=== PATIENT | male | born 1985 | race Caucasian/White ===

== ENCOUNTER 2019-05-05 13:35 | Inpatient (IN) | payer OTHER ==
[2019-05-05 17:25] VITALS: BMI 38.5
--- NOTE | 2019-05-05 18:56 | HP ---
COWS - Scale Resting Pulse: 1= [place] 81-100 Sweatin= Chills/Flushing Restless Observation: 1= Difficult to Sit Still Pupil Size: 1= Pupils >than Normal Bone or Joint Aches: 1= Mild Discomfort Runny Nose/ Eye Tearin= Nasal Congestion GI Upset > 30mins: 1= Stomach Cramp Tremor Observation: 1= Tremor [place], Not Seen Yawning Observation: 1= 1-2x During Session Anxiety or Irritability: 1=Feels Anxious/Irritable Goose Flesh Skin: 3=Piloerection COWS Score: 13 CIWA Score Nausea/Vomitin-Mild Nausea/No Vomiting Muscle Tremors: 3 Anxiety: 2 Agitation: 2 Paroxysmal Sweats: 2 Orientation: 0-Oriented Tacttile Disturbances: 0-None Auditory Disturbances: 0-None Visual Disturbances: 0-None Headache: 2-Mild CIWA-Ar Total Score: 12 - Admission Criteria OASAS Guidelines: Admission for Medically Managed Detox: Requires at least one of the followin. CIWA greater than 12 2. Seizures within the past 24 hours 3. Delirium tremens within the past 24 hours 4. Hallucinations within the past 24 hours 5. Acute intervention needed for co occurring medical disorder 6. Acute intervention needed for co occurring psychiatric disorder 7. Severe withdrawal that cannot be handled at a lower level of care (continued vomiting, continued diarrhea, abnormal vital signs) requiring intravenous medication and/or fluids 8. Patient presents the following: CIWA greater than 12 Admission Criteria Met: Admission criteria met Admission ROS [facility] Chief Complaint: alcohol and heroin detox Allergies/Adverse Reactions: Allergies Allergy/AdvReac Type Severity Reaction Status Date / Time hydromorphone [From Dilaudid] Allergy Mild Swelling Verified 05/05/19 17:17 History of Present Illness: 33 yo with long h/o opioid use and alcohol use. Has been to multiple detox and rehab. Has been in a methadone program- left in 07/2018, ago b/c he did not want to be tied down. Pt states he has been using heroin since then- sniffs. 20 bags/day. No h/o OD. Has narcan kit at home alcohol- 6-12 25 oz beer at night-drinks to forget the pain. Ni h/o seizures/DT' s DUR- no controlled substances DELVIN-0.0 - Ebola screening Have you traveled outside of the country in the last 21 days: No Have you had contact with anyone from an Ebola affected area: No Do you have a fever: No - Review of Systems Constitutional: No Symptoms Reported EENT: reports: No Symptoms Reported Respiratory: reports: No Symptoms reported Cardiac: reports: No Symptoms Reported GI: reports: No Symptoms Reported : reports: No Symptoms Reported Musculoskeletal: reports: Other (tingling and numbness of L leg) Integumentary: reports: Change in Color (L leg swelling and red), Other Neuro: reports: No Symptoms reported Endocrine: reports: No Symptoms Reported Hematology: reports: No Symptoms Reported Psychiatric: reports: No Sypmtoms Reported Other Systems: Reviewed and Negative Patient History - Patient Medical History Hx Genitourinary Disorders: No (s/p gastric bypass ) Hx Depression: Yes Other Medical History: anxiety, L leg chronically red- - Patient Surgical History Other Surgical History: s/p gastric bypass - Smoking Cessation Smoking history: Current every day smoker Have you smoked in the past 12 months: Yes Aproximately how many cigarettes per day: 20 Initiated information on smoking cessation: Yes 'Breaking Loose' booklet given: 05/05/19 - Substances abused Heroin Substance route: Inhalation Frequency: Daily Amount used: 20 bags Age of first use: 24 Date of last use: 05/05/19 Alcohol Substance route: Oral Frequency: Daily Amount used: (6) 25 oz can beer Age of first use: 17 Date of last use: 05/05/19 Family Disease History - Family Disease History Family Disease History: [place]: Father (liver and kidney failure, DM), Other: Father , Mother (gall bladder) Admission Physical Exam S - Vital Signs Vital Signs: Vital Signs - 24 hr 05/05/19 17:18 Temperature 99.3 F Pulse Rate 90 Respiratory 18 Rate Blood Pressure 125/76 - Physical General Appearance: Yes: Within Normal Limits, Other HEENTM: Yes: Within Normal Limits, Tm's normal Respiratory: Yes: Within Normal Limits, Chest Non-Tender Neck: Yes: Within Normal Limits Cardiology: Yes: Within Normal Limits, Regular Rhythm, Regular Rate Abdominal: Yes: Within Normal Limits, Normal Bowel Sounds Genitourinary: Yes: Within Normal Limits Back: Yes: Within Normal Limits Musculoskeletal: Yes: Within Normal Limits Extremities: Yes: Other (chronic swelling of Left leg- no tenderness and warmth) Neurological: Yes: Within Normal Limits, reading assistant II-XII NML intact, Fully Oriented Integumentary: Yes: Within Normal Limits, Normal Color Lymphatic: Yes: Within Normal Limits - Diagnostic (1) Alcohol use disorder Current Visit: Yes Status: Acute (2) Opioid use disorder Current Visit: Yes Status: Acute (3) H/O bariatric surgery Current Visit: Yes Status: Acute Breathalyzer - Breathalyzer Breathalyzer: 0 Urine Drug Screen - Test Device Lot number: [id number] Expiration date: 02/17/21 - Control Is test valid?: Yes - Results Drug screen NEGATIVE: No Urine drug screen results: FEN-Fentanyl, MOP-Opiates, OXY-Oxycodone, MTD- Methadone Inpatient Rehab Admission - Rehab Decision to Admit Inpatient rehab admission?: No
[2019-05-05] MEDS ORDERED: BISMUTH SUBSALICYLATE 524 MG/30 ML UD PO PRN (19:21)
[2019-05-05] MEDS ORDERED: ONDANSETRON *ODT* 4 MG TABLET SL PRN (19:21)
[2019-05-05] MEDS ORDERED: MAGNESIUM CITRATE 300 ML BOTTLE PO PRN (19:21)
[2019-05-05] MEDS ORDERED: IBUPROFEN 400 MG TABLET (FP) PO PRN (19:21)
[2019-05-05] MEDS ORDERED: MAGNESIUM HYDROX 2400MG/30ML ORAL SUSPENSION 30 ML CUP PO PRN (19:21)
[2019-05-05] MEDS ORDERED: MAG HYDROX/AL HYDROX/SIMETH 30 ML UNIT-DOSE CUP PO PRN (19:21)
[2019-05-05] MEDS ORDERED: ACETAMINOPHEN 325 MG TABLET (FP) PO PRN ×2 (19:21)
[2019-05-05] MEDS ORDERED: MENTHOL/PHENOL 1 EACH UD MM PRN (19:21)
[2019-05-05] MEDS ORDERED: METHADONE HCL 10 MG TABLET (FOR DETOX USE ONLY) PO ONE (19:26)
[2019-05-05] MEDS ORDERED: NALOXONE HCL 0.4 MG/ML VIAL IM PRN (19:26)
[2019-05-05] MEDS ORDERED: chlordiazePOXIDE HCL 25 MG CAPSULE PO PRN (19:26)
[2019-05-05] MEDS: THIAMINE HCL 100 MG TABLET (FP) PO SCH (22:30)
[2019-05-05] MEDS: chlordiazePOXIDE HCL 25 MG CAPSULE PO SCH (22:30)
[2019-05-05] MEDS: MELATONIN 5 MG TABLETS PO PRN (22:31)
[2019-05-06] MEDS: chlordiazePOXIDE HCL 25 MG CAPSULE PO SCH ×4 (06:00→22:03)
[2019-05-06] MEDS ORDERED: METHADONE HCL 5 MG TABLET (FOR DETOX USE ONLY) ONE (08:45)
[2019-05-06] MEDS ORDERED: METHADONE HCL 10 MG TABLET (FOR DETOX USE ONLY) ONE (08:46)
[2019-05-06 09:40] LABS: HEMOGLOBIN 10.9 GM/dL (11.7-16.9); MCH 25.2 pg (25.7-33.7); MEAN CELL VOLUME 78.6 fl (80-96); MEAN PLT VOLUME 8.6 fl (7.5-11.1); PLATELET COUNT 195 K/MM3 (134-434); RBC 4.32 M/mm3 (4.00-5.60); RDW 17.5 % (11.9-15.9)
[2019-05-06] MEDS ORDERED: METHADONE (DETOX) 20 MG, METHADONE (DETOX) 5 MG PO ONE (10:00)
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
[2019-05-06] MEDS: NICOTINE 21 MG/24 HOURS TOPICAL PATCH TD SCH (10:10)
[2019-05-06] MEDS: PRENATAL VITAMINS W/ FOLIC ACID TABLET (FP) PO SCH (10:10)
[2019-05-06 10:27] LABS: ALBUMIN 2.9 g/dl (3.4-5.0); BILIRUBIN,TOTAL 0.8 mg/dL (0.2-1); CREATININE 0.8 mg/dL (0.55-1.3); POTASSIUM 3.9 mmol/L (3.5-5.1); TOT PROT 6.2 g/dl (6.4-8.2)
[2019-05-06] MEDS: METHOCARBAMOL 500 MG TABLET PO PRN ×2 (15:16→22:05)
--- NOTE | 2019-05-06 15:18 | PN ---
[facility] CIWA - CIWA Score Nausea/Vomitin-No Nausea/No Vomiting Muscle Tremors: 3 Anxiety: 3 Agitation: 3 Paroxysmal Sweats: 3 Orientation: 0-Oriented Tacttile Disturbances: 0-None Auditory Disturbances: 0-None Visual Disturbances: 0-None Headache: 0-None Present CIWA-Ar Total Score: 12 BHS COWS - Scale Resting Pulse: 0= [place] 80 or Below Sweatin=Flushed/Facial Moisture Restless Observation: 1= Difficult to Sit Still Pupil Size: 0= Normal to Room Light Bone or Joint Aches: 2= Severe Diffuse Aches Runny Nose/ Eye Tearin= Runny Nose/Eyes GI Upset > 30mins: 0= None Tremor Observation of Outstretched Hands: 1= Tremor [place], Not Seen Yawning Observation: 1= 1-2x During Session Anxiety or Irritability: 2=Irritable/Anxious Goose Flesh Skin: 0=Smooth Skin COWS Score: 11 S Progress Note (SOAP) Subjective: chills sweats hot flashes interrupted sleep muscle achy muscle cramping Objective: 05/06/19 15:17 Vital Signs Temperature 98.4 F 05/06/19 14:09 Pulse Rate 69 05/06/19 14:09 Respiratory Rate 18 05/06/19 14:09 Blood Pressure 125/69 05/06/19 14:09 O2 Sat by Pulse Oximetry (%) Laboratory Tests 05/06/19 05/06/19 05/06/19 07:27 07:27 07:27 WBC 6.0 RBC 4.32 Hgb 10.9 L Hct 34.0 L MCV 78.6 L MCH 25.2 L MCHC 32.0 RDW 17.5 H Plt Count 195 MPV 8.6 Sodium 139 Potassium 3.9 Chloride 107 Carbon Dioxide 27 Anion Gap 6 L BUN 5.0 L Creatinine 0.8 Est GFR (CKD-EPI)AfAm 136.99 Est GFR (CKD-EPI)NonAf 118.20 Random Glucose 83 Calcium 8.0 L Total Bilirubin 0.8 AST 22 ALT 27 Alkaline Phosphatase 90 Total Protein 6.2 L Albumin 2.9 L RPR Titer Nonreactive HIV 1&2 Antibody Screen HIV P24 Antigen 05/06/19 07:27 WBC RBC Hgb Hct MCV MCH MCHC RDW Plt Count MPV Sodium Potassium Chloride Carbon Dioxide Anion Gap BUN Creatinine Est GFR (CKD-EPI)AfAm Est GFR (CKD-EPI)NonAf Random Glucose Calcium Total Bilirubin AST ALT Alkaline Phosphatase Total Protein Albumin RPR Titer HIV 1&2 Antibody Screen Negative HIV P24 Antigen Negative labs noted aaox3 ambulating no acute distress Assessment: 05/06/19 15:17 withdrawal sx Plan: continue detox increase fluids roboxine prn motrin 800mg prn
[2019-05-06] MEDS: THIAMINE HCL 100 MG TABLET (FP) PO SCH (22:03)
[2019-05-06] MEDS: IBUPROFEN 400 MG TABLET (FP) PO PRN (22:05)
[2019-05-06] MEDS: MELATONIN 5 MG TABLETS PO PRN (22:08)
[2019-05-07] MEDS: hydrOXYzine HCL 25 MG TABLET (FP) PO PRN (01:52)
[2019-05-07] MEDS: IBUPROFEN 400 MG TABLET (FP) PO PRN ×3 (04:20→17:46)
[2019-05-07] MEDS: METHOCARBAMOL 500 MG TABLET PO PRN (04:21)
[2019-05-07] MEDS: chlordiazePOXIDE HCL 25 MG CAPSULE PO SCH ×4 (06:43→22:30)
--- NOTE | 2019-05-07 09:51 | PN ---
[facility] CIWA - CIWA Score Nausea/Vomitin-No Nausea/No Vomiting Muscle Tremors: 3 Anxiety: 2 Agitation: 3 Paroxysmal Sweats: 2 Orientation: 0-Oriented Tacttile Disturbances: 0-None Auditory Disturbances: 0-None Visual Disturbances: 0-None Headache: 0-None Present CIWA-Ar Total Score: 10 S COWS - Scale Resting Pulse: 0= [place] 80 or Below Sweatin= Chills/Flushing Restless Observation: 1= Difficult to Sit Still Pupil Size: 0= Normal to Room Light Bone or Joint Aches: 1= Mild Discomfort Runny Nose/ Eye Tearin= Nasal Congestion GI Upset > 30mins: 0= None Tremor Observation of Outstretched Hands: 1= Tremor [place], Not Seen Yawning Observation: 1= 1-2x During Session Anxiety or Irritability: 2=Irritable/Anxious Goose Flesh Skin: 0=Smooth Skin COWS Score: 8 BHS Progress Note (SOAP) Subjective: agitation restless insomnia interrupted sleep sweats Objective: 05/07/19 09:50 Vital Signs Temperature 97.5 F L 05/07/19 09:43 Pulse Rate 75 05/07/19 09:43 Respiratory Rate 18 05/07/19 09:43 Blood Pressure 116/68 05/07/19 09:43 O2 Sat by Pulse Oximetry (%) Laboratory Tests 05/06/19 05/06/19 05/06/19 07:27 07:27 07:27 WBC 6.0 RBC 4.32 Hgb 10.9 L Hct 34.0 L MCV 78.6 L MCH 25.2 L MCHC 32.0 RDW 17.5 H Plt Count 195 MPV 8.6 Sodium 139 Potassium 3.9 Chloride 107 Carbon Dioxide 27 Anion Gap 6 L BUN 5.0 L Creatinine 0.8 Est GFR (CKD-EPI)AfAm 136.99 Est GFR (CKD-EPI)NonAf 118.20 Random Glucose 83 Calcium 8.0 L Total Bilirubin 0.8 AST 22 ALT 27 Alkaline Phosphatase 90 Total Protein 6.2 L Albumin 2.9 L RPR Titer Nonreactive HIV 1&2 Antibody Screen HIV P24 Antigen 05/06/19 07:27 WBC RBC Hgb Hct MCV MCH MCHC RDW Plt Count MPV Sodium Potassium Chloride Carbon Dioxide Anion Gap BUN Creatinine Est GFR (CKD-EPI)AfAm Est GFR (CKD-EPI)NonAf Random Glucose Calcium Total Bilirubin AST ALT Alkaline Phosphatase Total Protein Albumin RPR Titer HIV 1&2 Antibody Screen Negative HIV P24 Antigen Negative aaox3 ambulating no acute distress Assessment: 05/07/19 09:50 withdrawal sx Plan: continue detox increase fluids psych ordered
[2019-05-07] MEDS ORDERED: METHADONE HCL 10 MG TABLET (FOR DETOX USE ONLY) PO ONE (10:00)
[2019-05-07] MEDS: CYCLOBENZAPRINE HCL 10 MG TABLET (FP) PO PRN ×2 (10:46→19:14)
[2019-05-07] MEDS: PRENATAL VITAMINS W/ FOLIC ACID TABLET (FP) PO SCH (10:46)
[2019-05-07] MEDS: NICOTINE 21 MG/24 HOURS TOPICAL PATCH TD SCH (10:46)
[2019-05-07] MEDS: cloNIDine HCL 0.1 MG TABLET PO PRN ×2 (12:27→17:47)
[2019-05-07] MEDS: THIAMINE HCL 100 MG TABLET (FP) PO SCH (22:30)
[2019-05-08] MEDS ORDERED: chlordiazePOXIDE HCL 10 MG CAPSULE PO PRN
[2019-05-08] MEDS: IBUPROFEN 400 MG TABLET (FP) PO PRN ×3 (01:30→19:50)
[2019-05-08] MEDS: hydrOXYzine HCL 25 MG TABLET (FP) PO PRN (02:53)
[2019-05-08] MEDS: chlordiazePOXIDE HCL 10 MG CAPSULE PO SCH ×4 (05:11→22:07)
[2019-05-08] MEDS: CYCLOBENZAPRINE HCL 10 MG TABLET (FP) PO PRN ×3 (05:11→22:07)
[2019-05-08] MEDS ORDERED: METHADONE HCL 10 MG TABLET (FOR DETOX USE ONLY) ONE (09:33)
[2019-05-08] MEDS ORDERED: METHADONE HCL 5 MG TABLET (FOR DETOX USE ONLY) ONE (09:33)
[2019-05-08] MEDS ORDERED: METHADONE (DETOX) 10 MG, METHADONE (DETOX) 5 MG PO ONE (10:00)
--- NOTE | 2019-05-08 10:08 | PN ---
S CIWA - CIWA Score Nausea/Vomitin-Mild Nausea/No Vomiting Muscle Tremors: 2 Anxiety: 2 Agitation: 1-Slight > Activity Paroxysmal Sweats: 3 Orientation: 0-Oriented Tacttile Disturbances: 0-None Auditory Disturbances: 0-None Visual Disturbances: 0-None Headache: 0-None Present CIWA-Ar Total Score: 9 BHS COWS - Scale Resting Pulse: 0= [place] 80 or Below Sweatin=Flushed/Facial Moisture Restless Observation: 1= Difficult to Sit Still Pupil Size: 1= Pupils >than Normal Bone or Joint Aches: 1= Mild Discomfort Runny Nose/ Eye Tearin= Nasal Congestion GI Upset > 30mins: 1= Stomach Cramp Tremor Observation of Outstretched Hands: 0= None Yawning Observation: 0= None Anxiety or Irritability: 1=Feels Anxious/Irritable Goose Flesh Skin: 0=Smooth Skin COWS Score: 8 S Progress Note (SOAP) Subjective: interrupted sleep, sweats, shakes, diarrhea Objective: 05/08/19 10:05 Vital Signs Temperature 98.9 F 05/08/19 09:17 Pulse Rate 70 05/08/19 09:17 Respiratory Rate 16 05/08/19 09:17 Blood Pressure 141/65 05/08/19 09:17 O2 Sat by Pulse Oximetry (%) Laboratory Tests 05/06/19 05/06/19 05/06/19 07:27 07:27 07:27 WBC 6.0 RBC 4.32 Hgb 10.9 L Hct 34.0 L MCV 78.6 L MCH 25.2 L MCHC 32.0 RDW 17.5 H Plt Count 195 MPV 8.6 Sodium 139 Potassium 3.9 Chloride 107 Carbon Dioxide 27 Anion Gap 6 L BUN 5.0 L Creatinine 0.8 Est GFR (CKD-EPI)AfAm 136.99 Est GFR (CKD-EPI)NonAf 118.20 Random Glucose 83 Calcium 8.0 L Total Bilirubin 0.8 AST 22 ALT 27 Alkaline Phosphatase 90 Total Protein 6.2 L Albumin 2.9 L RPR Titer Nonreactive HIV 1&2 Antibody Screen HIV P24 Antigen TB (QFT) Incubation TB Test (QFT) Nil TB Test (QFT) Mitogen TB Test (QFT) Antigen TB Test (QFT) TB Positive Criteria 05/06/19 05/06/19 07:27 07:27 WBC RBC Hgb Hct MCV MCH MCHC RDW Plt Count MPV Sodium Potassium Chloride Carbon Dioxide Anion Gap BUN Creatinine Est GFR (CKD-EPI)AfAm Est GFR (CKD-EPI)NonAf Random Glucose Calcium Total Bilirubin AST ALT Alkaline Phosphatase Total Protein Albumin RPR Titer HIV 1&2 Antibody Screen Negative HIV P24 Antigen Negative TB (QFT) Incubation TB Test (QFT) Nil 0.03 TB Test (QFT) Mitogen 9.03 TB Test (QFT) Antigen 0.02 TB Test (QFT) Negative TB Positive Criteria obese male pt aox3 in nad ambulating , Assessment: 05/08/19 10:06 withdrawal sx's obesity anemia Plan: cont. detox increase fluids f/up with PMD -anemia benadryl hs 50mg imodium
[2019-05-08] MEDS: PRENATAL VITAMINS W/ FOLIC ACID TABLET (FP) PO SCH (10:47)
[2019-05-08] MEDS: NICOTINE 21 MG/24 HOURS TOPICAL PATCH TD SCH (10:47)
[2019-05-08] MEDS ORDERED: diphenhydrAMINE HCL 25 MG CAPSULE (FP) PO ONE (21:18)
[2019-05-08] MEDS: diphenhydrAMINE HCL 50 MG CAPSULE PO SCH (22:07)
[2019-05-08] MEDS: THIAMINE HCL 100 MG TABLET (FP) PO SCH (22:07)
[2019-05-09] MEDS: IBUPROFEN 400 MG TABLET (FP) PO PRN ×2 (02:43→22:58)
[2019-05-09] MEDS: hydrOXYzine HCL 25 MG TABLET (FP) PO PRN ×2 (02:43→14:56)
[2019-05-09] MEDS: chlordiazePOXIDE HCL 10 MG CAPSULE PO SCH ×2 (05:36→18:18)
[2019-05-09] MEDS: CYCLOBENZAPRINE HCL 10 MG TABLET (FP) PO PRN ×3 (05:36→22:58)
[2019-05-09] MEDS ORDERED: METHADONE HCL 10 MG TABLET (FOR DETOX USE ONLY) PO ONE (10:00)
[2019-05-09] MEDS: PRENATAL VITAMINS W/ FOLIC ACID TABLET (FP) PO SCH (10:07)
[2019-05-09] MEDS: NICOTINE 21 MG/24 HOURS TOPICAL PATCH TD SCH (10:08)
--- NOTE | 2019-05-09 11:30 | PN ---
[facility] CIWA - CIWA Score Nausea/Vomitin-No Nausea/No Vomiting Muscle Tremors: None Anxiety: 2 Agitation: 0-Normal Activity Paroxysmal Sweats: 3 Orientation: 0-Oriented Tacttile Disturbances: 0-None Auditory Disturbances: 0-None Visual Disturbances: 0-None Headache: 2-Mild CIWA-Ar Total Score: 7 S COWS - Scale Resting Pulse: 0= [place] 80 or Below Sweatin= Beads of Sweat on Face Restless Observation: 1= Difficult to Sit Still Pupil Size: 0= Normal to Room Light Bone or Joint Aches: 0= None Runny Nose/ Eye Tearin= None GI Upset > 30mins: 0= None Tremor Observation of Outstretched Hands: 0= None Yawning Observation: 1= 1-2x During Session Anxiety or Irritability: 2=Irritable/Anxious Goose Flesh Skin: 0=Smooth Skin COWS Score: 7 [facility] Progress Note (SOAP) Subjective: c/o sweats and anxiety. Objective: 05/09/19 11:30 Vital Signs 05/09/19 05/09/19 08:14 09:40 Temperature 97.7 F 98.1 F Pulse Rate 67 76 Respiratory 18 16 Rate Blood Pressure 122/60 141/92 Assessment: 05/09/19 11:30 AOX3, in no acute distress. Full ROM, ambulating in the unit. withdrawal symptoms. Plan: continue detox.
[2019-05-09] MEDS ORDERED: diphenhydrAMINE HCL 25 MG CAPSULE (FP) PO ONE (20:56)
[2019-05-09] MEDS: THIAMINE HCL 100 MG TABLET (FP) PO SCH (22:58)
[2019-05-09] MEDS: diphenhydrAMINE HCL 50 MG CAPSULE PO SCH (22:59)
[2019-05-10] MEDS: hydrOXYzine HCL 25 MG TABLET (FP) PO PRN (01:26)
[2019-05-10] MEDS ORDERED: chlordiazePOXIDE HCL 10 MG CAPSULE PO ONE (05:00)
[2019-05-10] MEDS ORDERED: METHADONE HCL 5 MG TABLET (FOR DETOX USE ONLY) PO ONE (06:00)
[2019-05-10] MEDS: IBUPROFEN 400 MG TABLET (FP) PO PRN (06:25)
[2019-05-10] MEDS: CYCLOBENZAPRINE HCL 10 MG TABLET (FP) PO PRN (06:26)
[2019-05-10 09:36] VITALS: BP 134/81; PULSE 72; TEMP 98.6
[2019-05-10] MEDS: NICOTINE 21 MG/24 HOURS TOPICAL PATCH TD SCH (10:28)
[2019-05-10] MEDS: PRENATAL VITAMINS W/ FOLIC ACID TABLET (FP) PO SCH (10:28)
--- NOTE | 2019-05-10 13:19 | DS ---
[facility] Detox Discharge Summary Admission Date: 05/05/19 Discharge Date: 05/10/19 - History Present History: Alcohol Dependence, Opioid Dependence - Physical Exam Results Vital Signs: Vital Signs Temperature 98.6 F 05/10/19 09:35 Pulse Rate 72 05/10/19 09:35 Respiratory Rate 20 05/10/19 09:35 Blood Pressure 134/81 05/10/19 09:35 O2 Sat by Pulse Oximetry (%) Pertinent Admission Physical Exam Findings: Laboratory Tests 05/06/19 05/06/19 05/06/19 07:27 07:27 07:27 WBC 6.0 RBC 4.32 Hgb 10.9 L Hct 34.0 L MCV 78.6 L MCH 25.2 L MCHC 32.0 RDW 17.5 H Plt Count 195 MPV 8.6 Sodium 139 Potassium 3.9 Chloride 107 Carbon Dioxide 27 Anion Gap 6 L BUN 5.0 L Creatinine 0.8 Est GFR (CKD-EPI)AfAm 136.99 Est GFR (CKD-EPI)NonAf 118.20 Random Glucose 83 Calcium 8.0 L Total Bilirubin 0.8 AST 22 ALT 27 Alkaline Phosphatase 90 Total Protein 6.2 L Albumin 2.9 L RPR Titer Nonreactive HIV 1&2 Antibody Screen HIV P24 Antigen TB (QFT) Incubation TB Test (QFT) Nil TB Test (QFT) Mitogen TB Test (QFT) Antigen TB Test (QFT) TB Positive Criteria 05/06/19 05/06/19 07:27 07:27 WBC RBC Hgb Hct MCV MCH MCHC RDW Plt Count MPV Sodium Potassium Chloride Carbon Dioxide Anion Gap BUN Creatinine Est GFR (CKD-EPI)AfAm Est GFR (CKD-EPI)NonAf Random Glucose Calcium Total Bilirubin AST ALT Alkaline Phosphatase Total Protein Albumin RPR Titer HIV 1&2 Antibody Screen Negative HIV P24 Antigen Negative TB (QFT) Incubation TB Test (QFT) Nil 0.03 TB Test (QFT) Mitogen 9.03 TB Test (QFT) Antigen 0.02 TB Test (QFT) Negative TB Positive Criteria - Treatment Hospital Course: Detox Protocol Followed, Detoxed Safely, Responded well, Discharged Condition Good, Rehab Referral Accepted Patient has Accepted a Rehab Referral to: [facility] - Medication Discharge Medications: Ambulatory Orders NK [No Known Home Medication] 05/05/19 - Diagnosis (1) Alcohol use disorder Current Visit: Yes Status: Acute (2) Opioid dependence, uncomplicated Current Visit: Yes Status: Chronic (3) Nicotine dependence Current Visit: Yes Status: Chronic (4) Obesity Current Visit: Yes Status: Chronic Qualifiers: Obesity type: unspecified obesity type Body mass index: BMI 38.0-38.9 - AMA Did Patient Leave Against Medical Advice: No
== END 2019-05-10 12:03 | disposition home or self-care (01) | DRG 773 ==
LOC: YASAS 13:35 → Y6N 19:45
PROVIDERS: ADMIT Surgery; ATTEND Surgery
PROC: HZ2ZZZZ Detoxification Services for Substance Abuse Treatment (ICD-10-PCS; principal; 2019-05-05)
DX: F11.23 Opioid dependence with withdrawal (principal); F10.230 Alcohol dependence with withdrawal, uncomplicated; F17.210 Nicotine dependence, cigarettes, uncomplicated; F19.280 Other psychoactive substance dependence with psychoactive substance-induced anxiety disorder; F19.282 Other psychoactive substance dependence with psychoactive substance-induced sleep disorder; D64.9 Anemia, unspecified; E66.9 Obesity, unspecified; Z68.38 Body mass index [BMI] 38.0-38.9, adult; Z98.84 Bariatric surgery status
CPT/HCPCS: 36415; 80053; 85027; 86480; 86593; 87389; J0735